=== PATIENT | male | born 1940 | race Caucasian/White ===

== ENCOUNTER → 2017-03-06 | Outpatient (CLI) | payer MEDICARE, OTHER | END | disposition disaster alternative care site (69) | LOC: GAMB 10:16 | DX: S79.912A Unspecified injury of left hip, initial encounter (principal); M25.552 Pain in left hip; I48.91 Unspecified atrial fibrillation; R42 Dizziness and giddiness; W01.0XXA Fall on same level from slipping, tripping and stumbling without subsequent striking against object, initial encounter ==